=== PATIENT | male | born 1990 ===

== ENCOUNTER 2025-08-21 08:49 | Emergency (ER) | payer OTHER ==
[~2025-08-21] VITALS: Ht 175.3 cm; Wt 92.5 kg
[~2025-08-21 08:49] MED LIST: FLOVENT HFA12 GM IH; PROAIR RESPICL90 MCG IH
[2025-08-21] MEDS ORDERED: DEXAMETHASONE SODIUM PHOSPHATE 4 MG/ML VIAL IM STA (09:13)
[2025-08-21] MEDS ORDERED: KETOROLAC TROMETHAMINE 30 MG VIAL IM STA (09:13)
[2025-08-21] MEDS ORDERED: ORPHENADRINE CITRATE 30 MG/ML AMPUL IM STA (09:13)
[2025-08-21] MEDS ORDERED: KETOROLAC TROMETHAMINE 30 MG VIAL ONE (09:29)
[2025-08-21] MEDS ORDERED: DEXAMETHASONE SODIUM PHOSPHATE 4 MG/ML VIAL ONE (09:30)
[2025-08-21] MEDS ORDERED: ORPHENADRINE CITRATE 30 MG/ML AMPUL ONE (09:30)
[2025-08-21] MEDS ORDERED: NORFLEX100MG PO (11:30)
[2025-08-21] MEDS ORDERED: IBU600 MG PO (11:30)
== END 2025-08-21 12:07 | disposition home or self-care (01) ==
LOC: ER 08:49
DX: M79.674 Pain in right toe(s) (principal)